=== PATIENT | female | born 1985 | race Two or more races ===

== ENCOUNTER 2025-04-27 21:53 | Inpatient (IN) | payer OTHER ==
[~2025-04-27] VITALS: Ht 180.3 cm; Wt 122.5 kg
[2025-04-27] MEDS ORDERED: NASAL MIST126 ML (22:19)
[2025-04-27] MEDS ORDERED: HUMALOG100 UNIT/1 (22:19)
[2025-04-27] MEDS ORDERED: ZESTRIL2.5 MG (22:20)
[2025-04-27] MEDS ORDERED: NEURONTIN300 MG (22:20)
[2025-04-27] MEDS ORDERED: GLIPIZIDE XL2.5 MG (22:20)
[2025-04-27] MEDS ORDERED: PROPAFENONE HC225 M1 (22:20)
--- NOTE | 2025-04-27 22:21 | NUR ---
PTE ALERTA Y ORIENTADA X3 VERBALIZA QUE TIENE BRIANNA ULCERA EN EL PIES EAN EN AR LA MISMA ES DIABETICA Y TIENE 599 MG/DL EN EL DEXTRO.
[2025-04-27] MEDS ORDERED: CEFTRIAXONE SODIUM 1,000 MG VIAL IV ONE (22:30)
[2025-04-27] MEDS ORDERED: VANCOMYCIN HCL 1,000 MG VIAL IV ONE (22:30)
[2025-04-27] MEDS ORDERED: CEFAZOLIN SODIUM 1,000 MG VIAL ONE (22:44)
[2025-04-27] MEDS ORDERED: INSULIN REGULAR, HUMAN 1,000 UNIT/10 ML UNITS IV ONE (22:45)
[2025-04-27] MEDS ORDERED: 0.9 % SODIUM CHLORIDE 1,000 ML IV SCH ×2 (22:45→23:45)
[2025-04-27] MEDS ORDERED: VANCOMYCIN HCL 1,000 MG VIAL ONE (22:45)
[2025-04-27] MEDS ORDERED: CEFTRIAXONE SODIUM 2,000 MG VIAL ONE (22:47)
--- NOTE | 2025-04-27 23:11 | NUR ---
SE ORIENTA A PACIENTE SOBRE TX MEDICO, REFIERE ENTENDER. SE REALIZAN MUESTRAS DE LABORATORIO BAJO MEDIDAS ASEPTICAS. SE ADMINISTRAN MEDICAMENTOS WALI ORDEN MEDICA. SE COORDINA GARRY X. SE REALIZA EKG. PENDIENTE ABG.
[2025-04-27 23:32] LABS: BASO % 0.4 % (0.1-1.2); EOS # 0.08 (0.04-0.54); EOS % 0.4 % (0.7-7.0); LYMPH # 3.62 (1.18-3.74); LYMPH % 19.2 % (19.3-53.1); MEAN PLATELET VOLUME 8.90 fl (9.4-12.4); MONO # 0.69 (0.24-0.82); MONO % 3.7 % (4.7-12.5); NEUT # 14.31 (1.56-6.13); NEUT % 75.9 % (34.0-71.1); RED CELL DISTRIBUTION WIDTH 12.4 % (11.6-14.4)
[2025-04-27 23:37] LABS: ABG PH 7.439 (7.35-7.45); ABG PO2 102.7 mmHg (80-100); BICARBONATE 23.2 mmol/l (23-25); o2 21 %
[2025-04-27] MEDS ORDERED: DEXTROSE 50 % IN WATER 0.5 G/ML DISP.SYRIN IV PRN (23:45)
[2025-04-27] MEDS ORDERED: INSULIN LISPRO 1,000 UNIT/10 ML UNITS SUBCUTANEO PRN (23:45)
[2025-04-27] MEDS ORDERED: ACETAMINOPHEN 500 MG GEL..CAP PO PRN (23:45)
[2025-04-27] MEDS ORDERED: FAMOTIDINE/PF 20 MG in 0.9 % SODIUM CHLORIDE 8 ML IV PUSH SCH (23:48)
[2025-04-27] MEDS ORDERED: GABAPENTIN 800 MG TABLET PO SCH (23:49)
[2025-04-27 23:52] LABS: INR 0.97
[2025-04-27 23:57] LABS: ALT/SGPT 12.0 U/L (12-78); AST/SGOT 5.0 U/L (15-37); BILIRUBIN TOTAL 0.6 mg/dL (0.3-1.2); BUN CREA RATIO 17.0 (7.0-25.0); CREATININE SERUM 1.14 mg/dL (0.55-1.02); GFR 52.79
[2025-04-28 00:01] LABS: GLOBULINA 7.4 G/DL (2.4-3.5); OSMOLALITY SERUM 278.0 MOSM/KG (275-295)
[2025-04-28 00:10] LABS: GLUCOSE FASTING 602.0 mg/dL (65-100)
[2025-04-28] MEDS ORDERED: PIPERACILLIN/TAZOBACTAM SODIUM 3.375 GM in DEXTROSE 5 % IN WATER 100 ML IV SCH ×2 (00:10)
[2025-04-28] MEDS ORDERED: 0.9 % SODIUM CHLORIDE 1,000 ML IV ONE ×2 (00:15)
[2025-04-28 00:44] LABS: ERYTHROCYTE SEDIMENTATION RATE > 130 mm/hr (0-20)
[2025-04-28 02:41] VITALS: BP 120/63; O2SAT 97
[2025-04-28] MEDS ORDERED: VANCOMYCIN HCL 1,000 MG VIAL ONE (07:23)
[2025-04-28 08:00] VITALS: BP 120/82; O2SAT 100
[2025-04-28] MEDS ORDERED: VANCOMYCIN HCL 1,000 MG VIAL IV SCH ×2 (09:00)
[2025-04-28] MEDS ORDERED: LISINOPRIL 5 MG TABLET PO SCH (09:00)
[2025-04-28] MEDS ORDERED: ENOXAPARIN SODIUM 40 MG/0.4 ML SYRINGE SUBCUTANEO SCH (09:00)
[2025-04-28 16:00] VITALS: BP 134/82; O2SAT 98
[2025-04-28] MEDS ORDERED: QUETIAPINE FUMARATE 100 MG TABLET PO SCH (21:00)
[2025-04-28] MEDS ORDERED: QUETIAPINE FUMARATE 100 MG TABLET PO ONE (23:39)
[2025-04-29 01:31] VITALS: BP 139/83; O2SAT 98
[2025-04-29] MEDS ORDERED: INSULIN LISPRO 1,000 UNIT/10 ML UNITS SUBCUTANEO ONE (04:30)
[2025-04-29] MEDS ORDERED: INSULIN REGULAR, HUMAN 1,000 UNIT/10 ML UNITS ONE (04:30)
[2025-04-29] MEDS ORDERED: INSULIN NPH HUMAN ISOPHANE 1,000 UNITS/10 ML UNITS SUBCUTANEO ONE (04:31)
[2025-04-29] MEDS ORDERED: INSULIN REGULAR, HUMAN 1,000 UNIT/10 ML UNITS IV ONE (04:45)
[2025-04-29 06:30] LABS: BASO % 0.4 % (0.1-1.2); EOS # 0.10 (0.04-0.54); EOS % 0.8 % (0.7-7.0); LYMPH # 2.61 (1.18-3.74); LYMPH % 20.2 % (19.3-53.1); MEAN PLATELET VOLUME 9.10 fl (9.4-12.4); MONO # 0.66 (0.24-0.82); MONO % 5.1 % (4.7-12.5); NEUT # 9.47 (1.56-6.13); NEUT % 73.0 % (34.0-71.1); RED CELL DISTRIBUTION WIDTH 12.5 % (11.6-14.4)
[2025-04-29] MEDS ORDERED: VANCOMYCIN HCL 1,000 MG VIAL ONE (07:00)
[2025-04-29] MEDS ORDERED: INSULIN NPH HUMAN ISOPHANE 1,000 UNITS/10 ML UNITS SUBCUTANEO NR (07:00)
[2025-04-29] MEDS ORDERED: INSULIN REGULAR, HUMAN 1,000 UNIT/10 ML UNITS SUBCUTANEO NR (07:00)
[2025-04-29 07:08] LABS: BUN CREA RATIO 9.0 (7.0-25.0); CREATININE SERUM 1.01 mg/dL (0.55-1.02); GFR 60.71; OSMOLALITY SERUM 285.0 MOSM/KG (275-295)
[2025-04-29 07:21] LABS: GLUCOSE FASTING 458.0 mg/dL (65-100)
[2025-04-29] MEDS ORDERED: QUETIAPINE FUMARATE 25 MG TABLET PO SCH (08:00)
[2025-04-29] MEDS ORDERED: PROPRANOLOL HCL 20 MG TABLET PO SCH (09:00)
[2025-04-29 13:40] VITALS: BP 147/75; O2SAT 97
[2025-04-29 17:50] VITALS: BP 121/83; O2SAT 100
[2025-04-29] MEDS ORDERED: INSULIN NPH HUMAN ISOPHANE 1,000 UNITS/10 ML UNITS SUBCUTANEO SCH (21:00)
[2025-04-29] MEDS ORDERED: QUETIAPINE FUMARATE 100 MG TABLET PO SCH (21:00)
[2025-04-30 01:23] VITALS: BP 122/75; O2SAT 98
[2025-04-30] MEDS ORDERED: VANCOMYCIN HCL 1,000 MG VIAL ONE (06:38)
[2025-04-30] MEDS ORDERED: INSULIN LISPRO 1,000 UNIT/10 ML UNITS SUBCUTANEO SCH (08:00)
[2025-04-30 08:02] LABS: BUN CREA RATIO 12.0 (7.0-25.0); CREATININE SERUM 0.78 mg/dL (0.55-1.02); GFR 81.8; GLUCOSE FASTING 320.0 mg/dL (65-100); OSMOLALITY SERUM 283.0 MOSM/KG (275-295)
[2025-04-30 09:00] VITALS: BP 121/75; O2SAT 98
[2025-04-30] MEDS ORDERED: INSULIN NPH HUMAN ISOPHANE 1,000 UNITS/10 ML UNITS SUBCUTANEO SCH (09:00)
[2025-04-30 16:28] VITALS: BP 115/69; O2SAT 100
[2025-05-01 01:14] VITALS: BP 133/76; O2SAT 98
[2025-05-01] MEDS ORDERED: VANCOMYCIN HCL 1,000 MG VIAL ONE (07:23)
[2025-05-01 08:00] VITALS: BP 115/69; O2SAT 98
[2025-05-01] MEDS ORDERED: LINEZOLID 600 MG TABLET PO SCH (13:00)
[2025-05-01 15:54] VITALS: BP 109/61; O2SAT 100
[2025-05-01] MEDS ORDERED: SUCRALFATE 1 G TABLET PO SCH (17:00)
[2025-05-01] MEDS ORDERED: FAMOTIDINE/PF 20 MG in 0.9 % SODIUM CHLORIDE 8 ML IV PUSH SCH (21:00)
[2025-05-02 00:57] VITALS: BP 129/84; O2SAT 100
[2025-05-02 08:00] VITALS: BP 125/75; O2SAT 97
[2025-05-02] MEDS ORDERED: INSULIN NPH HUMAN ISOPHANE 1,000 UNITS/10 ML UNITS SUBCUTANEO SCH (09:00)
[2025-05-02] MEDS ORDERED: INSULIN LISPRO 1,000 UNIT/10 ML UNITS SUBCUTANEO SCH (12:00)
[2025-05-02 16:37] VITALS: BP 121/76; O2SAT 99
[2025-05-03 00:19] VITALS: BP 121/84; O2SAT 100
[2025-05-03 07:57] LABS: BASO % 0.8 % (0.1-1.2); EOS # 0.22 (0.04-0.54); EOS % 2.5 % (0.7-7.0); LYMPH # 2.70 (1.18-3.74); LYMPH % 30.9 % (19.3-53.1); MEAN PLATELET VOLUME 8.50 fl (9.4-12.4); MONO # 0.65 (0.24-0.82); MONO % 7.4 % (4.7-12.5); NEUT # 5.03 (1.56-6.13); NEUT % 57.6 % (34.0-71.1); RED CELL DISTRIBUTION WIDTH 12.6 % (11.6-14.4)
[2025-05-03 08:17] VITALS: BP 128/78; O2SAT 97
== END 2025-05-03 17:44 | disposition home or self-care (01) | DRG 975 ==
LOC: ER 22:13 → SURG 23:58 → SURH 04-29 12:46
PROVIDERS: General Practice; Internal Medicine Endocrinology, Diabetes & Metabolism; ADMIT Student in an Organized Health Care Education/Training Program; ATTEND Student in an Organized Health Care Education/Training Program
PROC: B54CZZZ Ultrasonography of Left Lower Extremity Veins (ICD-10-PCS; 2025-04-27)
PROC: 0HBNXZZ Excision of Left Foot Skin, External Approach (ICD-10-PCS; principal; 2025-04-28)
PROC: BQ3MZZZ Magnetic Resonance Imaging (MRI) of Left Foot (ICD-10-PCS; 2025-04-29)
DX: A41.9 Sepsis, unspecified organism (principal); M86.9 Osteomyelitis, unspecified; B20 Human immunodeficiency virus [HIV] disease; N17.9 Acute kidney failure, unspecified; L97.529 Non-pressure chronic ulcer of other part of left foot with unspecified severity; E11.9 Type 2 diabetes mellitus without complications; Z79.4 Long term (current) use of insulin